=== PATIENT | female | born 1990 | race American Indian/Alaskan Native ===

== ENCOUNTER 2022-05-08 07:39 | Inpatient (IN) | payer MEDICAID ==
--- NOTE | 2022-05-08 08:42 | Emergency Department Report ---
History of Present Illness - General Chief Complaint: Arrhythmia/Palpitations Stated Complaint: TOOK TO MANY BP PILLS /FAST HEARTBEAT Time Seen by Provider: 05/08/22 08:23 Source: patient Mode of arrival: Ambulatory Limitations: No Limitations - History of Present Illness Initial Comments: 31-year-old female who mistakenly took 8 of her 5 mg Norvasc tablets. Patient say it occurred approximately 8 hours ago. Patient says she feels tachycardiac. Does not feel dizzy chest pain or shortness of breath. Complaint: accidental overdose Onset/Timin -: hour(s) Intent: other (A mistake) How Overdose Was Discovered: called 911 Associated Symptoms: nausea/vomiting Treatments Prior to Arrival: none - Related Data Allergies Allergy/AdvReac Type Severity Reaction Status Date / Time cillins Allergy Unknown Uncoded 05/08/22 07:49 ED Review of Systems ROS: Stated complaint: TOOK TO MANY BP PILLS /FAST HEARTBEAT Other details as noted in HPI Constitutional: denies: chills, fever Eyes: denies: eye pain, eye discharge, vision change ENT: denies: ear pain, throat pain Respiratory: denies: cough, shortness of breath, wheezing Cardiovascular: denies: chest pain, palpitations Endocrine: no symptoms reported, excessive sweating Gastrointestinal: denies: abdominal pain, nausea, diarrhea Genitourinary: denies: urgency, dysuria, discharge Musculoskeletal: denies: back pain, joint swelling, arthralgia Skin: denies: rash, lesions Neurological: denies: headache, weakness, paresthesias Psychiatric: denies: anxiety, depression Hematological/Lymphatic: denies: easy bleeding, easy bruising ED Past Medical Hx - Past Medical History Additional medical history: lupus, htn ED Physical Exam - General Limitations: No Limitations General appearance: alert, in no apparent distress - Head Head exam: Present: atraumatic, normocephalic - Eye Eye exam: Present: normal appearance, PERRL Pupils: Present: normal accommodation - ENT ENT exam: Present: normal exam, normal orophraynx, mucous membranes moist - Neck Neck exam: Present: normal inspection - Respiratory Respiratory exam: Present: normal lung sounds bilaterally. Absent: respiratory distress - Cardiovascular Cardiovascular Exam: Present: regular rate, normal rhythm. Absent: systolic murmur, diastolic murmur, rubs, gallop - GI/Abdominal GI/Abdominal exam: Present: soft, normal bowel sounds - Extremities Exam Extremities exam: Present: normal inspection, full ROM - Back Exam Back exam: Present: normal inspection, full ROM - Neurological Exam Neurological exam: Present: alert, oriented X3, CN II-XII intact, normal gait, reflexes normal. Absent: motor sensory deficit - Psychiatric Psychiatric exam: Present: normal affect, normal mood - Skin Skin exam: Present: warm, dry, intact, normal color. Absent: rash ED Course Vital Signs 05/08/22 07:46 Temperature 98.3 F Pulse Rate 136 H Respiratory 100 H Rate Blood Pressure 158/97 [Left] Critical care attestation.: If time is entered above; I have spent that time in minutes in the direct care of this critically ill patient, excluding procedure time. ED Disposition Condition: Stable
[2022-05-08 08:58] LABS: Bilirubin,Urine NEG (Negative); Blood,Urine NEG (Negative); Color,Urine Yellow (Yellow); HCG Qualitative,Urine Negative (Negative); Protein,Urine <15 mg/dL mg/dL (Negative)
[2022-05-08] MEDS ORDERED: SODIUM CHLORIDE 0.9% 1000 ML 1,000 ML IV ONE (09:00)
[2022-05-08 09:02] LABS: Mucus,Urine FEW /HPF; Urobilinogen,Urine < 2 mg/dL (<2.0); WBC,Urine < 1.0 /HPF (0.0-6.0)
[2022-05-08 09:04] LABS: Alanine Aminotransferase 10 units/L (7-56); Albumin 5.5 g/dL (3.9-5); Blood Urea Nitrogen 11 mg/dL (7-17); Calcium 10.1 mg/dL (8.4-10.2); Hemolysis Index 1
[2022-05-08 09:08] LABS: BUN/Creatinine Ratio 22
[2022-05-08 09:21] LABS: Basophils # (Auto) 0.1 K/mm3 (0.0-0.1); Eosinophils # (Auto) 0.2 K/mm3 (0.0-0.4); Eosinophils % (Auto) 7.8 % (0.0-4.3); Hematocrit 44.1 % (30.3-42.9); Hemoglobin 15.2 gm/dl (10.1-14.3); Lymphocytes % (Auto) 35.3 % (13.4-35.0); Mean Corpuscular HGB Conc 35 % (30-34); Mean Corpuscular Volume 95 fl (79-97); Monocytes # (Auto) 0.3 K/mm3 (0.0-0.8); Monocytes % (Auto) 9.2 % (0.0-7.3); Platelet Count 161 K/mm3 (140-440); Red Blood Count 4.66 M/mm3 (3.65-5.03); Red Cell Distribution Width 13.4 % (13.2-15.2)
[2022-05-08] MEDS ORDERED: predniSONE 10 MG TAB PO ONE (09:22)
[2022-05-08] MEDS ORDERED: charcoal activated SOLUTION 25 GM/120 ML PO ONE (09:43)
--- NOTE | 2022-05-08 10:18 | History and Physical Report ---
History of Present Illness Chief complaint: I took the wrong pills History of present illness: 31 YO Female with SLE, HTN presents to ED for evaluation. Patient reports "I think my heart is beating funny". Patient states that she accidentally ingested eight 5 mg Norvasc tablets accidentally. Patient states that she was intending to take 80 mg of prednisone for a lupus flare. Patient states that shortly after she ingested the pills she realized that she took the wrong medication. Patient transported to [facility] via private vehicle for further care and evaluation of the aforementioned symptoms. The patient was seen and evaluated in the emergency department. All lab and imaging studies reviewed. Poison control notified and recommend treatment with activated charcoal and telemetry monitoring. Patient denies fever, chills, chest pain, palpitation, adductive cough, skin rash, recent contact, syncope, trauma, seizures, suicidal ideation, homicidal ideation, intent to self-harm or known exposure to COVID-19. No prior admission for review. All medication listed at time of admission has been reconciled. Advanced care planning conducted in ED. Past History Past Medical History: hypertension, other (See HPI) Past Surgical History: No surgical history, Other (Reviewed) Social history: , lives with family. denies: smoking, alcohol abuse, prescription drug abuse Family history: hypertension Medications and Allergies Allergies Allergy/AdvReac Type Severity Reaction Status Date / Time cillins Allergy Unknown Uncoded 05/08/22 07:49 Review of Systems Constitutional: no weight loss, no weight gain, no fever, no chills Ears, nose, mouth and throat: no ear pain, no ear discharge, no decreased hearing, no nose pain, no nasal congestion Breasts: no change in shape, no swelling, no mass Cardiovascular: rapid/irregular heart beat, no chest pain, no edema, no shortness of breath Respiratory: no cough, no excessive sputum, no hemoptysis, no shortness of breath Gastrointestinal: no abdominal pain, no nausea, no diarrhea, no constipation, no change in bowel habits Genitourinary Female: no pelvic pain, no flank pain, no dysuria, no urinary frequency, no urgency Rectal: no pain, no incontinence, no bleeding Musculoskeletal: no neck stiffness, no neck pain, no shooting arm pain, no arm numbness/tingling, no shooting leg pain Integumentary: no rash, no redness, no sores, no wounds Neurological: no head injury, no paralysis, no parathesias, no numbness, no tingling, no syncope, no tremors Psychiatric: no anxiety, no memory loss, no sleep disturbances, no insomnia, no hypersomnia, no change in appetite, no change in libido, no suicidal ideation Endocrine: no cold intolerance, no polyphagia, no polydipsia, no nocturia, no excessive sweating Hematologic/Lymphatic: no easy bruising, no easy bleeding Allergic/Immunologic: no urticaria, no wheezing Exam - Constitutional Vitals: Temp Pulse Resp BP Pulse Ox 98.3 F 90 18 122/81 99 05/08/22 07:46 05/08/22 09:15 05/08/22 09:15 05/08/22 09:45 05/08/22 09:45 General appearance: Present: mild distress - EENT Eyes: Present: PERRL ENT: hearing intact, clear oral mucosa - Neck Neck: Present: supple, normal ROM - Respiratory Respiratory effort: normal Respiratory: bilateral: CTA - Cardiovascular Heart Sounds: Present: S1 & S2. Absent: rub, click - Extremities Extremities: pulses symmetrical, No edema Peripheral Pulses: within normal limits - Abdominal General gastrointestinal: Present: soft, non-tender, non-distended, normal bowel sounds Female genitourinary: Present: normal - Integumentary Integumentary: Present: clear, warm, dry - Musculoskeletal Musculoskeletal: gait normal, strength equal bilaterally - Psychiatric Psychiatric: appropriate mood/affect, intact judgment & insight - Neurologic Neurologic: CNII-XII intact, moves all extremities Results - Labs CBC & Chem 7: 05/08/22 Unknown 05/08/22 Unknown Labs: Abnormal lab results 05/08/22 05/08/22 Range/Units Unknown Unknown WBC 2.9 L (4.5-11.0) K/mm3 Hgb 15.2 H (10.1-14.3) gm/dl Hct 44.1 H (30.3-42.9) % MCH 33 H (28-32) pg MCHC 35 H (30-34) % Lymph % (Auto) 35.3 H (13.4-35.0) % [place] % (Auto) 9.2 H (0.0-7.3) % Eos % (Auto) 7.8 H (0.0-4.3) % Lymph # (Auto) 1.0 L (1.2-5.4) K/mm3 Seg Neutrophils # 1.3 L (1.8-7.7) K/mm3 Potassium 3.5 L (3.6-5.0) mmol/L Creatinine 0.5 L (0.6-1.2) mg/dL Glucose 119 H (65-100) mg/dL Total Protein 8.7 H (6.3-8.2) g/dL Albumin 5.5 H (3.9-5) g/dL Assessment and Plan - Patient Problems (1) Calcium channel dilip overdose Current Visit: Yes Status: Acute Qualifiers: Encounter type: initial encounter Plan to address problem: Post control notified, activated charcoal as per poison control recommendation, IV fluid resuscitation therapy, telemetry monitoring, supportive care. (2) SLE (systemic lupus erythematosus related syndrome) Current Visit: Yes Status: Acute Plan to address problem: Continue prehospital therapy. Continue steroid therapy, continue Plaquenil therapy. Outpatient rheumatology follow-up. (3) DVT prophylaxis Current Visit: Yes Status: Acute Plan to address problem: SCD to bilateral lower extremities on bed (4) Advance care planning Current Visit: Yes Status: Acute Plan to address problem: Disease education data, care plan discussed, diagnoses discussed, prognosis discussed, patient acknowledges understanding and agreement with care plan, +30 minutes. Patient counseled to follow-up with primary care physician for all age and risk factor appropriate screening test. Patient instructed to follow-up with bulk mail clerk for all age and risk factor appropriate screening test. +30 minutes.
[2022-05-08] MEDS ORDERED: ALBUTEROL 2.5 MG/3 ML NEBU IH PRN (10:40)
[2022-05-08] MEDS ORDERED: ACETAMINOPHEN 325 MG TAB PO PRN (10:40)
[2022-05-08] MEDS ORDERED: MORPHINE 4 MG/1 ML INJ IV PRN (10:40)
[2022-05-08] MEDS ORDERED: oxyCODONE /ACETAMINOPHEN 5-325MG TAB PO PRN (10:40)
[2022-05-08] MEDS ORDERED: ONDANSETRON 4 MG/2 ML INJ IV PRN (10:40)
[2022-05-08] MEDS ORDERED: SODIUM CHLORIDE 0.9% 1000 ML 1,000 ML IV SCH (10:45)
[2022-05-08 16:47] VITALS: BP 114/75
--- NOTE | 2022-05-09 10:11 | Event Note ---
Date: 05/09/22 Patient left AMA prior to completion of work-up and treatment plan. Patient acknowledges understanding of risk of worsening symptoms and even . Patient signed out AGAINST MEDICAL ADVICE.
--- NOTE | 2022-05-09 11:52 | Electrocardiograph Report ---
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
--- NOTE | 2022-05-09 12:41 | Electrocardiograph Report ---
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
== END 2022-05-08 17:30 | disposition left against medical advice (07) | DRG 918 ==
LOC: ED 07:39 → 4A 10:40
PROVIDERS: ADMIT Internal Medicine; ATTEND Internal Medicine
DX: T46.1X1A Poisoning by calcium-channel blockers, accidental (unintentional), initial encounter (principal); M32.9 Systemic lupus erythematosus, unspecified; I10 Essential (primary) hypertension; Z82.49 Family history of ischemic heart disease and other diseases of the circulatory system; Z88.8 Allergy status to other drugs, medicaments and biological substances; Y92.89 Other specified places as the place of occurrence of the external cause
CPT/HCPCS: 36415; 80053; 81001; 81025; 83735; 85025; 93005; 99285; G0378; J2405; J7030; J7512